=== PATIENT | male | born 1990 | race Caucasian/White ===

== ENCOUNTER 2019-12-18 16:51 | Emergency (ER) | payer MEDICAID ==
[~2019-12-18] VITALS: Ht 170.2 cm; Wt 63.8 kg
[2019-12-18 17:11] VITALS: BP 104/64
[2019-12-18 18:04] LABS: MICROSCOPIC INDICATED
--- NOTE | 2019-12-18 18:21 | NUR ---
POULTRY HUSBANDMAN: PT AMBULATORY WITH STEADY GAIT TO ROOM AT THIS TIME.
[2019-12-18] MEDS ORDERED: CEFTRIAXONE 250 MG IM ONE (19:00)
[2019-12-18] MEDS ORDERED: AZITHROMYCIN 500 MG TABLET PO ONE (19:00)
[2019-12-18] MEDS ORDERED: CEFTRIAXONE 250 MG ONE (19:06)
[2019-12-18] MEDS ORDERED: LIDOCAINE-MPF 1%, 2ML ONE (19:06)
[2019-12-18] MEDS ORDERED: AZITHROMYCIN 500 MG TABLET ONE (19:06)
== END 2019-12-18 20:00 | disposition home or self-care (01) ==
LOC: ED 19:59
DX: A54.9 Gonococcal infection, unspecified (principal); A59.9 Trichomoniasis, unspecified
CPT/HCPCS: 81001; 87086; 87491; 87591; 96372; 99283; J0696